=== PATIENT | male | born 1960 | race Caucasian/White ===

== ENCOUNTER 2020-02-27 11:15 | Emergency (ER) | payer OTHER ==
[2020-02-27 11:24] VITALS: BP 159/95; PULSE 75; TEMP 98.6; BMI 28.1
[2020-02-27] MEDS ORDERED: FLUORESCEIN NA 1 EA STRIP OD ONE (11:37)
[2020-02-27] MEDS ORDERED: TETRACAINE 0.5% HCL 0.6ML DROPPER.BOTTLE OD ONE (11:37)
[2020-02-27] MEDS ORDERED: TETRACAINE 0.5% OPHTH SOLN 2 ML BOTTLE ONE (11:38)
[2020-02-27] MEDS ORDERED: FLUORESCEIN NA 1 EA STRIP ONE (11:38)
--- NOTE | 2020-02-27 11:52 | PDOC ---
History of Present Illness - General Chief Complaint: Eye Problem Stated Complaint: LFT EYE INJURY Time Seen by Provider: 02/27/20 11:26 - History of Present Illness Initial Comments: 02/27/20 11:49 59-year-old male without comorbidities presents for evaluation of left eye irritation. Patient works with welding and metal. He feels he may have gotten some foreign body stuck in his left eye 5 days ago since that time he said left eye irritation tearing and redness Past History - Medical History Allergies/Adverse Reactions: Allergies Allergy/AdvReac Type Severity Reaction Status Date / Time No Known Allergies Allergy Verified 03/27/18 18:23 Home Medications: Ambulatory Orders Tobramycin 0.3% Ophth Soln [Tobrex Ophthalmic Solution -] 1 drop OD Q4HWA #1 bottle 03/27/18 Tobramycin 0.3% Ophth Soln [Tobrex Ophthalmic Solution -] 1 drop OS Q4HWA #1 bottle 02/27/20 COPD: No - Psycho-Social/Smoking History Smoking History: Never smoked - Substance Abuse Hx (Audit-C & DAST Scrn) How often the patient has a drink containing alcohol: 4 0r more times/wk Number of drinks the patient has on a typical day: 1 or 2 Score: In Men: 4 or > Positive; In Women: 3 or > Positive: 4 Screen Result (Pos requires Nsg. Audit-10AR): Positive In the last yr the pt used illegal drug/Rx for NonMed reason: No Score: Yes response is considered Positive: 0 Screen Result (Positive result requires Nsg. DAST-10): Negative Review of Systems - Review of Systems HEENTM: Yes: Eye Pain, Blurred Vision, Tearing *Physical Exam - Vital Signs Last Vital Signs Temp Pulse Resp BP Pulse Ox 98.6 F 75 16 159/95 100 02/27/20 11:20 02/27/20 11:20 02/27/20 11:20 02/27/20 11:20 02/27/20 11:20 - Physical Exam 02/27/20 11:50 Tetracaine Fluorescein were instilled in the left eye multiple corneal abrasions in the center of the eye were seen without evidence of foreign bodies. Too many abrasions to count submillimeter. ED Treatment Course - Medications Given in the ED: ED Medications Discontinued Medications Generic Name Dose Route Start Last Admin Trade Name Johnny PRN Reason Stop Dose Admin Fluorescein Sodium 1 ea 02/27/20 11:37 02/27/20 11:41 Fluorets - OD 02/27/20 11:38 1 ea ONCE ONE Administration Tetracaine HCl 1 drop 02/27/20 11:37 02/27/20 11:41 Tetravisc 0.5% Eye Drops - OD 02/27/20 11:38 1 drop ONCE ONE Administration Medical Decision Making - Medical Decision Making 02/27/20 11:50 Corneal abrasion, tobramycin, follow-up with ophthalmology today or tomorrow without fail. I have reviewed the pathophysiology with the patient. They are in agreement with the treatment plan all questions were answered to their satisfaction. Understanding for follow-up without fail was also conveyed to the patient. Again they are in agreement. Discharge - Discharge Information Problems reviewed: Yes Clinical Impression/Diagnosis: Corneal abrasion Condition: Stable Disposition: HOME - Admission No - Additional Discharge Information Prescriptions: Tobramycin 0.3% Ophth Soln [Tobrex Ophthalmic Solution -] 1 drop OS Q4HWA #1 bottle - Follow up/Referral Referrals: Cliff Womack MD [Staff Physician] - - Patient Discharge Instructions Additional Instructions: Please use the antibiotic drops as directed. Tylenol and Motrin for pain as di rected. Without fail follow-up with ophthalmology either today or tomorrow for further evaluation and treatment options. If you cannot get an appointment by tomorrow please return to the emergency room for further evaluation. - Post Discharge Activity
== END 2020-02-27 11:55 | disposition home or self-care (01) ==
LOC: JERFT 11:15
DX: S05.02XA Injury of conjunctiva and corneal abrasion without foreign body, left eye, initial encounter (principal)
CPT/HCPCS: 99283-25